=== PATIENT | female | born 1945 | race Caucasian/White ===

== ENCOUNTER 2021-12-27 20:37 | Emergency (ER) | payer MEDICARE ==
[~2021-12-27] VITALS: Ht 170.2 cm; Wt 81.8 kg
[2021-12-27 20:59] VITALS: BP 163/83
== END 2021-12-27 21:18 ==
LOC: ER 20:38
DX: F10.129 Alcohol abuse with intoxication, unspecified (principal); Y90.9 Presence of alcohol in blood, level not specified
CPT/HCPCS: 99283

== ENCOUNTER 2023-12-27 10:20 | Day surgery (SDC) | payer MEDICARE ==
[2023-12-27] VITALS (11 sets, daily range): BP systolic 116–138; BP diastolic 67–91; PULSE 75–108; RESP 16; TEMP 97.4; O2SAT 93–99
[~2023-12-27] VITALS: Ht 170.2 cm; Wt 84.5 kg
[2023-12-27] MEDS ORDERED: normal saline 1000ml 1,000 ML IV SCH (10:45)
[2023-12-27] MEDS ORDERED: MIDAZolam 1mg/ml 10ml vial IV ONE (10:45)
[2023-12-27] MEDS ORDERED: fentaNYL/PF 50MCG/1 ML 2ML syringe IV ONE (10:45)
[2023-12-27] MEDS ORDERED: OMEP40CA21 PO (11:24)
[2023-12-27] MEDS ORDERED: ALEN70TA37 PO (11:24)
[2023-12-27] MEDS ORDERED: TRAM50TA2 PO (11:24)
[2023-12-27] MEDS ORDERED: SOTA80TA PO (11:24)
[2023-12-27] MEDS ORDERED: GABA300T25 (11:24)
[2023-12-27] MEDS ORDERED: APIX5TAB3 PO (11:24)
== END 2023-12-27 14:35 | disposition home or self-care (01) ==
LOC: SSTAY O 10:20
PROVIDERS: ATTEND Student in an Organized Health Care Education/Training Program
DX: I48.91 Unspecified atrial fibrillation (principal); I10 Essential (primary) hypertension; Z79.899 Other long term (current) drug therapy; Z79.01 Long term (current) use of anticoagulants
CPT/HCPCS: 92960; 93005; J2250; J3010; J7030; A4620